=== PATIENT | male | born 1945 | race Caucasian/White ===

== ENCOUNTER 2024-10-30 14:55 | Emergency (ER) | payer MEDICARE, OTHER ==
[2024-10-30] VITALS (8 sets, daily range): BP systolic 145–172; BP diastolic 65–79
[~2024-10-30] VITALS: Ht 170.2 cm; Wt 73.9 kg
[2024-10-30 15:37] LABS: BASO% 0.6 % (0-3); EOS% 2.9 % (0-8); HEMATOCRIT 36.3 % (39.0-50.0); HEMOGLOBIN 12.1 g/dl (14.0-18.0); IMMATURE GRANULOCYTES 0.1 % (0.0-5.0); LYMPH% 32.3 % (15-41); MEAN CELL VOLUME 92.4 fL CALC (80.0-100.0); MEAN CORPUSCULAR HGB 30.8 pG CALC (26.0-32.0); MEAN CORPUSCULAR HGB CONC 33.3 g/dL CAL (32.0-36.0); MONO% 8.5 % (2-13); NEUT# 4.74 thou/uL (1.82-7.42); NEUT% 55.6 % (42-76); RED BLOOD COUNT 3.93 mill/uL (4.70-6.10); RED CELL DISTRI WIDTH 12.7 % (11.5-15.5)
[2024-10-30 15:58] LABS: ALBUMIN 4.2 g/dL (3.2-5.0); BILIRUBIN, TOTAL 0.8 mg/dL (0.2-1.3); CREATININE 1.5 mg/dL (0.7-1.3); POTASSIUM 4.1 mmol/l (3.5-5.1); TOTAL PROTEIN 6.8 g/dL (6.3-8.2)
== END 2024-10-30 16:55 | disposition home or self-care (01) ==
LOC: ED 14:55
PROVIDERS: Family Medicine
DX: R42 Dizziness and giddiness (principal); E11.65 Type 2 diabetes mellitus with hyperglycemia; I10 Essential (primary) hypertension; Z86.73 Personal history of transient ischemic attack (TIA), and cerebral infarction without residual deficits

== ENCOUNTER 2024-12-02 12:06 | Emergency (ER) | payer MEDICARE, OTHER | END 2024-12-02 12:50 | disposition left against medical advice (07) | LOC: ED 12:06 | DX: Z53.21 Procedure and treatment not carried out due to patient leaving prior to being seen by health care provider (principal) ==